=== PATIENT | male | born 1960 | race American Indian/Alaskan Native ===

== ENCOUNTER 2022-02-25 10:32 | Emergency (ER) | payer MEDICARE ==
[2022-02-25 11:37] VITALS: BP 121/88
--- NOTE | 2022-02-25 12:38 | XRay Report ---
XR chest routine 2V INDICATION / CLINICAL INFORMATION: Weakness. COMPARISON: 06/04/2021 FINDINGS: SUPPORT DEVICES: None. HEART /PULMONARY VASCULATURE: Stable cardiomegaly. No significant pulmonary vasculature congestion. LUNGS / PLEURA: Bibasilar volume loss. No focal airspace consolidation. No sizable pleural effusion. No pneumothorax. ADDITIONAL FINDINGS: No significant additional findings. IMPRESSION: 1. No acute findings. Signer Name: Waldemar Pedersen MD Signed: 02/25/2022 12:34 PM Workstation Name: [id number]
[2022-02-25 12:52] LABS: Basophils # (Auto) 0.1 K/mm3 (0.0-0.1); Basophils % (Auto) 0.9 % (0.0-1.8); Eosinophils % (Auto) 0.2 % (0.0-4.3); Hematocrit 41.3 % (35.5-45.6); Hemoglobin 13.5 gm/dl (11.8-15.2); Lymphocytes % (Auto) 17.8 % (13.4-35.0); Mean Corpuscular HGB Conc 33 % (32-34); Mean Corpuscular Volume 96 fl (84-94); Monocytes # (Auto) 0.4 K/mm3 (0.0-0.8); Monocytes % (Auto) 8.3 % (0.0-7.3); Platelet Count 227 K/mm3 (140-440); Red Cell Distribution Width 13.7 % (13.2-15.2)
[2022-02-25 13:20] LABS: Albumin 4.6 g/dL (3.9-5); Calcium 9.2 mg/dL (8.4-10.2)
[2022-02-25 14:08] LABS: INR 0.9 (0.87-1.13)
--- NOTE | 2022-02-26 13:34 | Electrocardiograph Report ---
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
== END 2022-02-25 21:54 | disposition left against medical advice (07) ==
LOC: ED 10:32
DX: R06.02 Shortness of breath (principal); Z53.21 Procedure and treatment not carried out due to patient leaving prior to being seen by health care provider
CPT/HCPCS: 36415; 71046; 80053; 84484; 85025; 85610; 93005

== ENCOUNTER 2022-02-26 09:24 | Inpatient (IN) | payer MEDICARE ==
--- NOTE | 2022-02-26 11:08 | Cat Scan Report ---
CT HEAD WITHOUT CONTRAST INDICATION / CLINICAL INFORMATION: L sided weakness. TECHNIQUE: All CT scans at this location are performed using CT dose reduction for ALARA by means of automated e xposure control. COMPARISON: None available. FINDINGS: HEMORRHAGE: No evidence of intracranial hemorrhage or extra-axial fluid collection. EXTRA-AXIAL SPACES: Cortical sulci and sylvian fissures are within normal limits for size and configu ration. Basilar cisterns have an unremarkable appearance. VENTRICULAR SYSTEM: Lateral ventricles are within normal limits for size given the patient's age of [age] years. CEREBRAL PARENCHYMA: Extensive periventricular, subcortical and deep white matter lucency is observed . This is probably secondary to advanced microvascular ischemic change. Are there risk factors such a s diabetes, hypertension, cigarette smoking or renal disease A small focus of decreased attenuation s uggest the presence of remote small deep infarction in the posterior aspect of the left thalamus. The re is no indication of recent infarction. There is no indication of remote cortical infarction. MIDLINE SHIFT OR HERNIATION: There is no mass effect. CEREBELLUM / BRAINSTEM: A small (3 mm diameter) area of decreased attenuation is identified within th e clau lateralizing to the left midline. This likely represents a remote small pontine infarction. Br ainstem has an otherwise unremarkable appearance. MIDLINE STRUCTURES:Pituitary gland has an unremarkable appearance. No abnormalities are seen in the p ineal region. INTRACRANIAL VESSELS:Calcified atherosclerotic plaque is present along the course of the cavernous se gments of both internal carotid arteries. Similar findings are seen at the distal vertebral arteries. CRANIOCERVICAL JUNCTION:No significant abnormality. ORBITS: visualized portions of the orbits have an unremarkable appearance. SOFT TISSUES of HEAD: No significant abnormality. CALVARIUM: Evaluation of bone windows reveals no abnormalities. PARANASAL SINUSES / MASTOID AIR CELLS: Paranasal sinuses are free from inflammatory mucosal disease. Mastoid air cells are normally pneumatized. ADDITIONAL FINDINGS: None. IMPRESSION: 1. Moderate microvascular ischemic changes in the white matter both cerebral hemispheres. 2. 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 3. No acute intracranial abnormality is identified. Signer Name: Prasanna Monterroso MD Signed: 02/26/2022 11:04 AM Workstation Name: [id number]
[2022-02-27 00:33] LABS: Basophils % (Auto) 0.3 % (0.0-1.8); Eosinophils % (Auto) 0.2 % (0.0-4.3); Hematocrit 38.1 % (35.5-45.6); Hemoglobin 12.7 gm/dl (11.8-15.2); Lymphocytes # (Auto) 1.4 K/mm3 (1.2-5.4); Lymphocytes % (Auto) 18.3 % (13.4-35.0); Mean Corpuscular HGB Conc 34 % (32-34); Mean Corpuscular Volume 96 fl (84-94); Monocytes # (Auto) 0.8 K/mm3 (0.0-0.8); Monocytes % (Auto) 10.4 % (0.0-7.3); Platelet Count 217 K/mm3 (140-440); Red Blood Count 3.96 M/mm3 (3.65-5.03); Red Cell Distribution Width 13.5 % (13.2-15.2)
--- NOTE | 2022-02-27 00:46 | Emergency Department Report ---
ED Neuro Deficit HPI - General Chief Complaint: Neuro Symptoms/Deficit Stated Complaint: LT SIDE WEAKNESS Time Seen by Provider: 02/26/22 22:56 Source: patient Mode of arrival: Wheelchair Limitations: Physical Limitation - History of Present Illness Initial Comments: Patient is a 61-year-old male presenting to ED with complaint of weakness and decreased sensation in his left arm and hand beginning Tuesday. States he is having trouble grasping things. No past history of CVA. - Related Data Home Medications: Previous Rx's Medication Instructions Recorded Last Taken Type Aspirin [Aspirin BABY CHEW TAB] 81 mg PO QDAY 30 Days #30 tab.chew 06/09/21 Unknown Rx Furosemide [Lasix TAB] 20 mg PO QDAY 30 Days #30 tablet 06/09/21 Unknown Rx Losartan [Cozaar] 100 mg PO QDAY 30 Days #30 tablet 06/09/21 Unknown Rx Metoprolol [Lopressor TAB] 50 mg PO BID 30 Days #60 tablet 06/09/21 Unknown Rx NIFEdipine XL [Procardia Xl] 60 mg PO Q12HR 30 Days #60 tablet 06/09/21 Unknown Rx Tamsulosin [Flomax] 0.4 mg PO QDAY 30 Days #30 capsule 06/09/21 Unknown Rx hydrALAZINE [Apresoline TAB] 100 mg PO Q8H 30 Days #90 tab 06/09/21 Unknown Rx Allergies/Adverse Reactions: Allergies Allergy/AdvReac Type Severity Reaction Status Date / Time No Known Allergies Allergy Verified 02/25/22 11:37 ED Review of Systems ROS: Stated complaint: LT SIDE WEAKNESS Other details as noted in HPI Constitutional: no symptoms reported Respiratory: denies: cough, shortness of breath, wheezing Cardiovascular: denies: chest pain, palpitations Gastrointestinal: denies: abdominal pain, nausea, diarrhea Genitourinary: denies: urgency, dysuria Musculoskeletal: denies: back pain, joint swelling, arthralgia Skin: denies: rash, lesions Neurological: weakness. denies: headache Psychiatric: denies: anxiety, depression ED Past Medical Hx - Past Medical History Hx Hypertension: Yes Hx Congestive Heart Failure: Yes Hx Diabetes: No Hx Asthma: No Hx COPD: No Additional medical history: urinary frequency - Social History Smoking Status: Current Every Day Smoker - Medications Home Medications: Home Medications Medication Instructions Recorded Confirmed Last Taken Type Aspirin [Aspirin BABY CHEW TAB] 81 mg PO QDAY 30 Days #30 tab.chew 06/09/21 Unknown Rx Furosemide [Lasix TAB] 20 mg PO QDAY 30 Days #30 tablet 06/09/21 Unknown Rx Losartan [Cozaar] 100 mg PO QDAY 30 Days #30 tablet 06/09/21 Unknown Rx Metoprolol [Lopressor TAB] 50 mg PO BID 30 Days #60 tablet 06/09/21 Unknown Rx NIFEdipine XL [Procardia Xl] 60 mg PO Q12HR 30 Days #60 tablet 06/09/21 Unknown Rx Tamsulosin [Flomax] 0.4 mg PO QDAY 30 Days #30 capsule 06/09/21 Unknown Rx hydrALAZINE [Apresoline TAB] 100 mg PO Q8H 30 Days #90 tab 06/09/21 Unknown Rx ED Neuro Physical Exam - General Limitations: Physical Limitation General appearance: alert, in no apparent distress Suspected Stroke: Yes - Head Head exam: Present: atraumatic, normocephalic - Respiratory Respiratory exam: Present: normal lung sounds bilaterally. Absent: respiratory distress - Cardiovascular Cardiovascular Exam: Present: regular rate, normal rhythm, normal heart sounds - GI/Abdominal GI/Abdominal exam: Present: soft. Absent: distended, tenderness - Neurological Exam Neurological exam: Present: alert, oriented X3 - NIHSS Assessment Interval: 24 hours post onset of symptoms +-20 minutes 1a. Level of Consciousness: alert/keenly responsive 1b. LOC Questions: answers both correctly 1c. LOC Commands: performs tasks correctly 2. Best Gaze: normal 3. Visual: no visual loss 4. Facial Palsy: normal symmetrical movement 5b. Motor Arm Right: no drift 5a. Motor Arm Left: drift 6a. Motor Leg Left: no drift 6b. Motor Leg Right: no drift 7. Limb Ataxia: present 1 limb 8. Sensory: normal 9. Best Language: no aphasia 10. Dysarthria: normal 11. Extinction/Inattention: no abnormality Total Score: 2 Stroke Severity: Minor Stroke - Psychiatric Psychiatric exam: Present: normal affect, normal mood - Skin Skin exam: Present: warm, dry, intact, normal color ED Course Vital Signs 02/26/22 02/26/22 02/26/22 09:47 20:14 23:30 Temperature 98.4 F 98.5 F Pulse Rate 85 89 Respiratory 18 18 23 Rate Blood Pressure 133/95 Blood Pressure 154/84 [Left] O2 Sat by Pulse 97 94 95 Oximetry 02/26/22 02/26/22 23:31 23:45 Temperature Pulse Rate 58 L 67 Respiratory 23 16 Rate Blood Pressure 166/96 170/98 Blood Pressure [Left] O2 Sat by Pulse 95 98 Oximetry - Lab Data Result diagrams: 02/27/22 00:14 02/27/22 00:14 Lab Results 02/27/22 02/27/22 Range/Units 00:14 00:14 WBC 7.5 (4.5-11.0) K/mm3 RBC 3.96 (3.65-5.03) M/mm3 Hgb 12.7 (11.8-15.2) gm/dl Hct 38.1 (35.5-45.6) % MCV 96 H (84-94) fl MCH 32 (28-32) pg MCHC 34 (32-34) % RDW 13.5 (13.2-15.2) % Plt Count 217 (140-440) K/mm3 Lymph % (Auto) 18.3 (13.4-35.0) % [place] % (Auto) 10.4 H (0.0-7.3) % Eos % (Auto) 0.2 (0.0-4.3) % Baso % (Auto) 0.3 (0.0-1.8) % Lymph # (Auto) 1.4 (1.2-5.4) K/mm3 [place] # (Auto) 0.8 (0.0-0.8) K/mm3 Eos # (Auto) 0.0 (0.0-0.4) K/mm3 Baso # (Auto) 0.0 (0.0-0.1) K/mm3 Seg Neutrophils % 70.8 H (40.0-70.0) % Seg Neutrophils # 5.3 (1.8-7.7) K/mm3 Sodium 142 (137-145) mmol/L Potassium 3.9 (3.6-5.0) mmol/L Chloride 107.9 H (98-107) mmol/L Carbon Dioxide 23 (22-30) mmol/L Anion Gap 15 mmol/L BUN 22 H (9-20) mg/dL Creatinine 1.5 H (0.8-1.3) mg/dL Estimated GFR 58 ml/min BUN/Creatinine Ratio 15 % Glucose 91 (75-100) mg/dL Calcium 8.9 (8.4-10.2) mg/dL Total Bilirubin 0.40 (0.1-1.2) mg/dL AST 19 (5-40) units/L ALT 9 (7-56) units/L Alkaline Phosphatase 59 (35-129) units/L Total Protein 7.0 (6.3-8.2) g/dL Albumin 4.3 (3.9-5) g/dL Albumin/Globulin Ratio 1.6 % - Medical Decision Making CT head shows no acute findings however shows evidence of remote infarcts. CBC and CMP grossly unremarkable. Patient is not a candidate for tPA due to duration of symptoms. Aspirin ordered. Will admit to hospitalist for further stroke work-up. Critical care attestation.: If time is entered above; I have spent that time in minutes in the direct care of this critically ill patient, excluding procedure time. ED Disposition Clinical Impression: Symptoms of cerebrovascular accident (CVA) Disposition: 09 ADMITTED INPATIENT Is pt being admited?: Yes Does the pt Need Aspirin: Yes Condition: Stable
[2022-02-27 00:53] LABS: Albumin 4.3 g/dL (3.9-5); Calcium 8.9 mg/dL (8.4-10.2)
[2022-02-27] MEDS ORDERED: ASPIRIN 325 MG TAB PO ONE (01:34)
[2022-02-27] MEDS ORDERED: ACETAMINOPHEN 325 MG TAB PO PRN (02:32)
[2022-02-27] MEDS ORDERED: MAGNESIUM HYDROXIDE (MOM) ORAL LIQD UDC PO PRN (02:32)
[2022-02-27] MEDS ORDERED: MORPHINE 4 MG/1 ML INJ IV PRN ×2 (02:32)
[2022-02-27] MEDS ORDERED: PROMETHAZINE 25 MG RECT SUPP PR PRN (02:32)
[2022-02-27] MEDS ORDERED: MORPHINE 2 MG/1 ML INJ IV PRN ×2 (02:32)
[2022-02-27] MEDS ORDERED: METOCLOPRAMIDE 10 MG TAB PO PRN (02:32)
[2022-02-27] MEDS ORDERED: ONDANSETRON 4 MG/2 ML INJ IV PRN (02:32)
--- NOTE | 2022-02-27 02:49 | History and Physical Report ---
History of Present Illness Date of examination: 02/27/22 Date of admission: 02/27/2022 Chief complaint: Left arm numbness/weakness History of present illness: 61-year-old male with known history of hypertension, CHF, history of tobacco abuse presenting to the emergency room today with complaints of left upper extremity numbness and sensation all of which started about 24 hours ago. He has also been having difficulty gripping objects. He denies any headache or dizziness and denies any diaphoresis. No chest pain or shortness of breath, no nausea vomiting and no abdominal pain. Patient denies having similar symptoms in the past. Work-up in the emergency room today, labs significant for BUN of [address] scan of the head shows moderate microvascular ischemic changes in the white matter both cerebral hemispheres. 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 No acute intracranial abnormality. Patient being admitted for possible CVA work-up. Past History Past Medical History: heart failure, hypertension Past Surgical History: No surgical history Social history: smoking (Current daily smoker) Family history: no significant family history Medications and Allergies Allergies Allergy/AdvReac Type Severity Reaction Status Date / Time No Known Allergies Allergy Verified 02/25/22 11:37 Home Medications Medication Instructions Recorded Confirmed Last Taken Type Aspirin [Aspirin BABY CHEW TAB] 81 mg PO QDAY 30 Days #30 tab.chew 06/09/21 Unknown Rx Furosemide [Lasix TAB] 20 mg PO QDAY 30 Days #30 tablet 06/09/21 Unknown Rx Losartan [Cozaar] 100 mg PO QDAY 30 Days #30 tablet 06/09/21 Unknown Rx Metoprolol [Lopressor TAB] 50 mg PO BID 30 Days #60 tablet 06/09/21 Unknown Rx NIFEdipine XL [Procardia Xl] 60 mg PO Q12HR 30 Days #60 tablet 06/09/21 Unknown Rx Tamsulosin [Flomax] 0.4 mg PO QDAY 30 Days #30 capsule 06/09/21 Unknown Rx hydrALAZINE [Apresoline TAB] 100 mg PO Q8H 30 Days #90 tab 06/09/21 Unknown Rx Active Meds: Active Medications Acetaminophen (Acetaminophen 325 Mg Tab) 650 mg PO Q4H PRN PRN Reason: Pain MILD(1-3)/Fever >100.5/TOUSSAINT Acetaminophen (Acetaminophen 325 Mg Tab) 650 mg PO Q4H PRN PRN Reason: Pain, Mild (1-3) Aspirin (Aspirin 325 Mg Tab) 325 mg PO QDAY CATIE Atorvastatin Calcium (Atorvastatin 40 Mg Tab) 40 mg PO QHS CATIE Bisacodyl (Bisacodyl 10 Mg Rect Supp) 10 mg [place] QDAY PRN PRN Reason: Constipation Heparin Sodium (Porcine) (Heparin 5,000 Unit/1 Ml Vial) 5,000 unit SUB-Q Q8HR CATIE Magnesium Hydroxide (Magnesium Hydroxide (Mom) Oral Liqd Udc) 30 ml PO Q4H PRN PRN Reason: Constipation Magnesium Hydroxide (Magnesium Hydroxide (Mom) Oral Liqd Udc) 30 ml PO Q4H PRN PRN Reason: Constipation Metoclopramide HCl (Metoclopramide 10 Mg Tab) 10 mg PO Q6H PRN PRN Reason: Nausea And Vomiting Morphine Sulfate (Morphine 2 Mg/1 Ml Inj) 2 mg IV Q4H PRN PRN Reason: Pain, Moderate (4-6) Morphine Sulfate (Morphine 4 Mg/1 Ml Inj) 4 mg IV Q4H PRN PRN Reason: Pain , Severe (7-10) Morphine Sulfate (Morphine 2 Mg/1 Ml Inj) 2 mg IV Q4H PRN PRN Reason: Pain, Moderate (4-6) Morphine Sulfate (Morphine 4 Mg/1 Ml Inj) 4 mg IV Q4H PRN PRN Reason: Pain , Severe (7-10) Ondansetron HCl (Ondansetron 4 Mg/2 Ml Inj) 4 mg IV Q8H PRN PRN Reason: Nausea And Vomiting Promethazine HCl (Promethazine 25 Mg Rect Supp) 25 mg NH Q6H PRN PRN Reason: Nausea And Vomiting Sodium Chloride (Sodium Chloride 0.9% 10 Ml Flush Syringe) 10 ml IV BID CATIE Sodium Chloride (Sodium Chloride 0.9% 10 Ml Flush Syringe) 10 ml IV PRN PRN PRN Reason: LINE FLUSH Sodium Chloride (Sodium Chloride 0.9% 10 Ml Flush Syringe) 10 ml INJ PRN PRN PRN Reason: LINE FLUSH Review of Systems Constitutional: no fever, no chills Ears, nose, mouth and throat: no nasal congestion, no sore throat Cardiovascular: no chest pain, no palpitations Respiratory: no cough, no shortness of breath Gastrointestinal: no abdominal pain, no nausea, no vomiting, no diarrhea Genitourinary Male: no dysuria, no hematuria, no flank pain, no nocturia Musculoskeletal: no neck pain, no low back pain Integumentary: no rash, no pruritis Neurological: weakness (Left arm), numbness (Left arm), no headaches, no confusion Exam - Constitutional Vitals: Temp Pulse Resp BP Pulse Ox 98.5 F 81 17 165/113 96 02/26/22 20:14 02/27/22 02:01 02/27/22 01:45 02/27/22 02:01 02/27/22 02:01 General appearance: Present: no acute distress, well-nourished - EENT Eyes: Present: PERRL, EOM intact. Absent: scleral icterus ENT: hearing intact, clear oral mucosa, dentition normal - Neck Neck: Present: supple, normal ROM - Respiratory Respiratory effort: normal Respiratory: bilateral: CTA - Cardiovascular Rhythm: regular Heart Sounds: Present: S1 & S2. Absent: gallop, systolic murmur, diastolic murmur, rub, click - Extremities Extremities: no ischemia, pulses intact, pulses symmetrical, No edema, normal temperature, Full ROM Peripheral Pulses: within normal limits - Abdominal General gastrointestinal: Present: soft, non-tender, non-distended, normal bowel sounds. Absent: mass - Integumentary Integumentary: Present: clear, warm, dry, normal turgor. Absent: rash - Musculoskeletal Musculoskeletal: left sided weakness (Left upper extremity) - Psychiatric Psychiatric: appropriate mood/affect, intact judgment & insight, memory intact, cooperative - Neurologic Neurologic: CNII-XII intact, no focal deficits, moves all extremities Results - Labs CBC & Chem 7: 02/27/22 00:14 02/27/22 00:14 Labs: Abnormal lab results 02/27/22 02/27/22 Range/Units 00:14 00:14 MCV 96 H (84-94) fl [place] % (Auto) 10.4 H (0.0-7.3) % Seg Neutrophils % 70.8 H (40.0-70.0) % Chloride 107.9 H (98-107) mmol/L BUN 22 H (9-20) mg/dL Creatinine 1.5 H (0.8-1.3) mg/dL Assessment and Plan Assessment: 1. Left upper extremity weakness 2. Hypertension 3. Tobacco abuse Plan: 1. Patient admitted and placed on telemetry. 2. Replace consult to neurology and physical therapy for evaluation. 3. Patient will be started on daily aspirin and statin. 4. We will request MRI of the brain, carotid Doppler and echocardiogram. DVT prophylaxis: Subcutaneous heparin CODE STATUS: Full code
[2022-02-27] MEDS ORDERED: hydrALAZINE 20 MG/1 ML INJ IV PRN ×3 (03:00→04:00)
[2022-02-27] MEDS: HEPARIN 5,000 UNIT/1 ML VIAL SUB-Q SCH ×3 (05:44→22:32)
[2022-02-27] MEDS: ASPIRIN 325 MG TAB PO SCH (10:06)
--- NOTE | 2022-02-27 10:38 | Event Note ---
Date: 02/27/22 Patient seen and examined at bedside. He reports difficulty with using his left hand. He has no other focal deficits. He does have left leg pain with plans for hip replacement in the next few weeks. Patient has history of heart failure and has home medications were reconciled. We are currently waiting MRI/echo/Doppler. CT of the head reviewed and results discussed with patient. We will continue with current care plan.
[2022-02-27] MEDS: hydrALAZINE 100 MG TAB PO SCH ×2 (12:01→18:18)
[2022-02-27] MEDS: METOPROLOL TARTRATE 25 MG TAB PO SCH (22:33)
[2022-02-27] MEDS: NIFEdipine XL 30 MG TAB PO SCH (22:33)
[2022-02-28] MEDS: hydrALAZINE 100 MG TAB PO SCH ×3 (04:15→21:33)
[2022-02-28] MEDS: HEPARIN 5,000 UNIT/1 ML VIAL SUB-Q SCH ×3 (05:56→21:34)
[2022-02-28 06:36] LABS: Basophils % (Auto) 0.4 % (0.0-1.8); Eosinophils # (Auto) 0.1 K/mm3 (0.0-0.4); Eosinophils % (Auto) 1.2 % (0.0-4.3); Hematocrit 35.8 % (35.5-45.6); Hemoglobin 11.9 gm/dl (11.8-15.2); Lymphocytes # (Auto) 1.5 K/mm3 (1.2-5.4); Lymphocytes % (Auto) 24.9 % (13.4-35.0); Mean Corpuscular HGB Conc 33 % (32-34); Mean Corpuscular Volume 95 fl (84-94); Monocytes # (Auto) 0.5 K/mm3 (0.0-0.8); Monocytes % (Auto) 9.2 % (0.0-7.3); Platelet Count 193 K/mm3 (140-440); Red Blood Count 3.75 M/mm3 (3.65-5.03); Red Cell Distribution Width 13.5 % (13.2-15.2)
[2022-02-28 06:50] LABS: BUN/Creatinine Ratio 15; Blood Urea Nitrogen 19 mg/dL (9-20); Calcium 8.3 mg/dL (8.4-10.2); Hemolysis Index 8
[2022-02-28] MEDS: NIFEdipine XL 30 MG TAB PO SCH ×2 (10:18→21:32)
[2022-02-28] MEDS: TAMSULOSIN 0.4 MG CAP PO SCH (10:18)
[2022-02-28] MEDS: METOPROLOL TARTRATE 25 MG TAB PO SCH ×2 (10:18→21:32)
[2022-02-28] MEDS: ASPIRIN 325 MG TAB PO SCH (10:18)
[2022-02-28] MEDS: FUROSEMIDE 20 MG TAB PO SCH (10:18)
--- NOTE | 2022-02-28 11:32 | Progress Note ---
Assessment and Plan Assessment and plan: #CVA vs TIA #Left upper extremity weakness -CT of the head shows remote small pontine and left thalamic stroke -MRI ordered and pending -Echocardiogram showed no PFO -PT recommends acute rehab -Neurology consult pending -continue ASA + statin #Chronic heart failure with reduced ejection fraction, not in acute exacerbation -Previous echocardiogram showed EF of 40 to 45%; TTE 02/2022 shows LVEF 55-60% -continue home doses of lasix, metoprolol -losartan was held by PCP, will not restart #Hypertension -continue hydralazine at home dose #Tobacco abuse -Smoking cessation counseling, supportive care, behavior change counseling, +15 minutes. #Chronic hip pain -patient currently being worked up outpatient for possible hip replacement -PRN analgesics ordered #Advanced care planning -Disease education conducted, care plan discussed, diagnoses discussed, prognosis discussed, and patient acknowledges understanding with care plan -Time: +30 min History Interval history: No acute events overnight. Patient reports improved strength in his left hand, but it is not totally 100% back to normal. We discussed findings on imaging and rehab recommendation from physical therapy. Patient is agreeable. He has chronic pain in his left hip and was aware of as needed medications. Hospitalist Physical - Physical exam Narrative exam: GENERAL: Well-developed well-nourished. Sitting on the side of the bed in no acute distress. HEENT: Normocephalic. Atraumatic. NECK: Supple. CHEST/LUNGS: CTAB on room air HEART/CARDIOVASCULAR: RRR. No murmur, rubs or gallops appreciated. ABDOMEN: +BS. NT/ND. SKIN: No rashes noted. NEURO: No focal motor deficit. Follows all commands. MUSCULOSKELETAL: No joint effusion EXTREMITIES: No cyanosis, clubbing or edema. PSYCH: Cooperative. - Constitutional Vitals: Temp Pulse Resp BP Pulse Ox 98.0 F 83 18 139/99 98 02/28/22 07:46 02/28/22 07:46 02/28/22 07:46 02/28/22 07:46 02/28/22 07:46 General appearance: Present: no acute distress, well-nourished Results - Labs CBC & Chem 7: 02/28/22 05:46 02/28/22 05:46 Labs: Laboratory Last Values WBC 5.9 K/mm3 (4.5-11.0) 02/28/22 05:46 RBC 3.75 M/mm3 (3.65-5.03) 02/28/22 05:46 Hgb 11.9 gm/dl (11.8-15.2) 02/28/22 05:46 Hct 35.8 % (35.5-45.6) 02/28/22 05:46 MCV 95 fl (84-94) H 02/28/22 05:46 MCH 32 pg (28-32) 02/28/22 05:46 MCHC 33 % (32-34) 02/28/22 05:46 RDW 13.5 % (13.2-15.2) 02/28/22 05:46 Plt Count 193 K/mm3 (140-440) 02/28/22 05:46 Lymph % (Auto) 24.9 % (13.4-35.0) 02/28/22 05:46 [place] % (Auto) 9.2 % (0.0-7.3) H 02/28/22 05:46 Eos % (Auto) 1.2 % (0.0-4.3) 02/28/22 05:46 Baso % (Auto) 0.4 % (0.0-1.8) 02/28/22 05:46 Lymph # (Auto) 1.5 K/mm3 (1.2-5.4) 02/28/22 05:46 [place] # (Auto) 0.5 K/mm3 (0.0-0.8) 02/28/22 05:46 Eos # (Auto) 0.1 K/mm3 (0.0-0.4) 02/28/22 05:46 Baso # (Auto) 0.0 K/mm3 (0.0-0.1) 02/28/22 05:46 Seg Neutrophils % 64.3 % (40.0-70.0) 02/28/22 05:46 Seg Neutrophils # 3.8 K/mm3 (1.8-7.7) 02/28/22 05:46 Sodium 141 mmol/L (137-145) 02/28/22 05:46 Potassium 3.9 mmol/L (3.6-5.0) 02/28/22 05:46 Chloride 110.4 mmol/L (98-107) H 02/28/22 05:46 Carbon Dioxide 20 mmol/L (22-30) L 02/28/22 05:46 Anion Gap 15 mmol/L 02/28/22 05:46 BUN 19 mg/dL (9-20) 02/28/22 05:46 Creatinine 1.3 mg/dL (0.8-1.3) 02/28/22 05:46 Estimated GFR > 60 ml/min 02/28/22 05:46 BUN/Creatinine Ratio 15 % 02/28/22 05:46 Glucose 105 mg/dL (75-100) H 02/28/22 05:46 Calcium 8.3 mg/dL (8.4-10.2) L 02/28/22 05:46 Total Bilirubin 0.40 mg/dL (0.1-1.2) 02/27/22 00:14 AST 19 units/L (5-40) 02/27/22 00:14 ALT 9 units/L (7-56) 02/27/22 00:14 Alkaline Phosphatase 59 units/L (35-129) 02/27/22 00:14 Total Protein 7.0 g/dL (6.3-8.2) 02/27/22 00:14 Albumin 4.3 g/dL (3.9-5) 02/27/22 00:14 Albumin/Globulin Ratio 1.6 % 02/27/22 00:14 Active Medications - Current Medications Current Medications: Generic Name Dose Route Start Last Admin Trade Name Freq PRN Reason Stop Dose Admin Acetaminophen 650 mg 02/27/22 02:32 Acetaminophen 325 Mg Tab PO Q4H PRN Pain, Mild (1-3) Aspirin 325 mg 02/27/22 10:00 02/28/22 10:18 Aspirin 325 Mg Tab PO 325 mg QDAY CATIE Administration Atorvastatin Calcium 40 mg 02/27/22 22:00 02/27/22 22:33 Atorvastatin 40 Mg Tab PO 40 mg QHS CATIE Administration Bisacodyl 10 mg 02/27/22 02:32 Bisacodyl 10 Mg Rect Supp MD QDAY PRN Constipation Furosemide 20 mg 02/28/22 10:00 02/28/22 10:18 Furosemide 20 Mg Tab PO 20 mg QDAY CATIE Administration Heparin Sodium (Porcine) 5,000 unit 02/27/22 06:00 02/28/22 05:56 Heparin 5,000 Unit/1 Ml Vial SUB-Q 5,000 unit Q8HR CATIE Administration Hydralazine HCl 10 mg 02/27/22 03:12 02/27/22 03:13 Hydralazine 20 Mg/1 Ml Inj IV 10 mg Q4HR PRN Administration Hypertension Hydralazine HCl 100 mg 02/27/22 11:00 02/28/22 04:15 Hydralazine 100 Mg Tab PO 100 mg Q8H CATIE Administration Magnesium Hydroxide 30 ml 02/27/22 02:32 Magnesium Hydroxide (Mom) Oral Liqd Udc PO Q4H PRN Constipation Metoclopramide HCl 10 mg 02/27/22 02:32 Metoclopramide 10 Mg Tab PO Q6H PRN Nausea And Vomiting Metoprolol Tartrate 50 mg 02/27/22 22:00 02/28/22 10:18 Metoprolol Tartrate 25 Mg Tab PO 50 mg BID CTAIE Administration Morphine Sulfate 2 mg 02/27/22 02:32 Morphine 2 Mg/1 Ml Inj IV Q4H PRN Pain, Moderate (4-6) Morphine Sulfate 4 mg 02/27/22 02:32 02/27/22 03:13 Morphine 4 Mg/1 Ml Inj IV 4 mg Q4H PRN Administration Pain , Severe (7-10) Nifedipine 60 mg 02/27/22 22:00 02/28/22 10:18 Nifedipine Xl 30 Mg Tab PO 60 mg Q12HR CATIE Administration Ondansetron HCl 4 mg 02/27/22 02:32 Ondansetron 4 Mg/2 Ml Inj IV Q8H PRN Nausea And Vomiting Promethazine HCl 25 mg 02/27/22 02:32 Promethazine 25 Mg Rect Supp MD Q6H PRN Nausea And Vomiting Sodium Chloride 10 ml 02/27/22 10:00 02/27/22 22:34 Sodium Chloride 0.9% 10 Ml Flush Syringe IV 10 ml BID CATIE Administration Sodium Chloride 10 ml 02/27/22 02:32 Sodium Chloride 0.9% 10 Ml Flush Syringe IV PRN PRN LINE FLUSH Tamsulosin HCl 0.4 mg 02/28/22 10:00 02/28/22 10:18 Tamsulosin 0.4 Mg Cap PO 0.4 mg QDAY CATIE Administration Nutrition/Malnutrition Assess - Dietary Evaluation Nutrition/Malnutrition Findings: Nutrition Notes Start: 02/27/22 08:19 Freq: Status: Active Protocol: Document 02/27/22 08:19 DEANNE (Rec: 02/27/22 08:28 DEANNE [id number]) Nutrition Notes Need for Assessment generated from: MD Order,Education Initial or Follow up Brief Note Current Diagnosis Hypertension Other Pertinent Diagnosis R/O CVA, CHF, L-UE Weakness. Current Diet Cardiac Diet (since B 02/27). 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 Weight Status Overweight Subjective/Other Information RD consult for nutrition education assessment. No reports available on Pt's PO intake of meals at the time , will assess at F/U. Pt is on Room Air, O2 saturation @ 95%, according to Physical Assessment History notes. Bedside swallow assessment passed on 02/27, according to Swallow Screen notes. Pt still in critical condition , not a candidate for Nutrition Education at the time, will assess feasibility on F/U. Percent of energy/protein needs met: Prescribed Cardiac Diet provides for energy/protein needs (2,230 Kcal/85 g) during LOS. Nutrition Intervention Follow-Up By: 03/05/22 Additional Comments Nutrition education will be provided at F/U, if feasible. Continue monitoring food tolerance, %PO intake of meals , and BM.
[2022-03-01] MEDS: hydrALAZINE 100 MG TAB PO SCH ×3 (05:23→21:34)
[2022-03-01] MEDS: HEPARIN 5,000 UNIT/1 ML VIAL SUB-Q SCH ×3 (05:23→21:27)
--- NOTE | 2022-03-01 07:57 | Progress Note ---
Assessment and Plan Assessment and plan: #CVA vs TIA #Left upper extremity weakness -CT of the head shows remote small pontine and left thalamic stroke -MRI ordered and pending -Echocardiogram showed no PFO -PT recommends acute rehab; patient would prefer HH with PT -Neurology consult pending -continue ASA + statin #Chronic heart failure with reduced ejection fraction, not in acute exacerbation -Previous echocardiogram showed EF of 40 to 45%; TTE 02/2022 shows LVEF 55-60% -continue home doses of lasix, metoprolol -losartan was held by PCP, will not restart #Hypertension -continue hydralazine at home dose #Tobacco abuse -Smoking cessation counseling, supportive care, behavior change counseling, +15 minutes. #Chronic hip pain -patient currently being worked up outpatient for possible hip replacement -PRN analgesics ordered #Advanced care planning -Disease education conducted, care plan discussed, diagnoses discussed, prognosis discussed, and patient acknowledges understanding with care plan -Time: +30 min #Discharge planning -Patient would like to go home with home health and physical therapy services, case management consult placed History Interval history: No acute events overnight. Patient reports continued numbness in his L hand but feels better overall. He has no complaints at this time. Hospitalist Physical - Physical exam Narrative exam: GENERAL: Well-developed well-nourished. Sitting on the side of the bed in no acute distress. HEENT: Normocephalic. Atraumatic. NECK: Supple. CHEST/LUNGS: CTAB on room air HEART/CARDIOVASCULAR: RRR. No murmur, rubs or gallops appreciated. ABDOMEN: +BS. NT/ND. SKIN: No rashes noted. NEURO: No focal motor deficit. Follows all commands. MUSCULOSKELETAL: No joint effusion EXTREMITIES: No cyanosis, clubbing or edema. PSYCH: Cooperative. - Constitutional Vitals: Temp Pulse Resp BP Pulse Ox 98.8 F 72 18 126/86 100 03/01/22 03:14 03/01/22 03:14 03/01/22 03:14 03/01/22 03:14 03/01/22 03:14 General appearance: Present: no acute distress, well-nourished Results - Labs CBC & Chem 7: 02/28/22 05:46 02/28/22 05:46 Labs: Laboratory Last Values WBC 5.9 K/mm3 (4.5-11.0) 02/28/22 05:46 RBC 3.75 M/mm3 (3.65-5.03) 02/28/22 05:46 Hgb 11.9 gm/dl (11.8-15.2) 02/28/22 05:46 Hct 35.8 % (35.5-45.6) 02/28/22 05:46 MCV 95 fl (84-94) H 02/28/22 05:46 MCH 32 pg (28-32) 02/28/22 05:46 MCHC 33 % (32-34) 02/28/22 05:46 RDW 13.5 % (13.2-15.2) 02/28/22 05:46 Plt Count 193 K/mm3 (140-440) 02/28/22 05:46 Lymph % (Auto) 24.9 % (13.4-35.0) 02/28/22 05:46 [place] % (Auto) 9.2 % (0.0-7.3) H 02/28/22 05:46 Eos % (Auto) 1.2 % (0.0-4.3) 02/28/22 05:46 Baso % (Auto) 0.4 % (0.0-1.8) 02/28/22 05:46 Lymph # (Auto) 1.5 K/mm3 (1.2-5.4) 02/28/22 05:46 [place] # (Auto) 0.5 K/mm3 (0.0-0.8) 02/28/22 05:46 Eos # (Auto) 0.1 K/mm3 (0.0-0.4) 02/28/22 05:46 Baso # (Auto) 0.0 K/mm3 (0.0-0.1) 02/28/22 05:46 Seg Neutrophils % 64.3 % (40.0-70.0) 02/28/22 05:46 Seg Neutrophils # 3.8 K/mm3 (1.8-7.7) 02/28/22 05:46 Sodium 141 mmol/L (137-145) 02/28/22 05:46 Potassium 3.9 mmol/L (3.6-5.0) 02/28/22 05:46 Chloride 110.4 mmol/L (98-107) H 02/28/22 05:46 Carbon Dioxide 20 mmol/L (22-30) L 02/28/22 05:46 Anion Gap 15 mmol/L 02/28/22 05:46 BUN 19 mg/dL (9-20) 02/28/22 05:46 Creatinine 1.3 mg/dL (0.8-1.3) 02/28/22 05:46 Estimated GFR > 60 ml/min 02/28/22 05:46 BUN/Creatinine Ratio 15 % 02/28/22 05:46 Glucose 105 mg/dL (75-100) H 02/28/22 05:46 Calcium 8.3 mg/dL (8.4-10.2) L 02/28/22 05:46 Total Bilirubin 0.40 mg/dL (0.1-1.2) 02/27/22 00:14 AST 19 units/L (5-40) 02/27/22 00:14 ALT 9 units/L (7-56) 02/27/22 00:14 Alkaline Phosphatase 59 units/L (35-129) 02/27/22 00:14 Total Protein 7.0 g/dL (6.3-8.2) 02/27/22 00:14 Albumin 4.3 g/dL (3.9-5) 02/27/22 00:14 Albumin/Globulin Ratio 1.6 % 02/27/22 00:14 [place]/IV: Voiding Method Toilet Active Medications - Current Medications Current Medications: Generic Name Dose Route Start Last Admin Trade Name Freq PRN Reason Stop Dose Admin Acetaminophen 650 mg 02/27/22 02:32 Acetaminophen 325 Mg Tab PO Q4H PRN Pain, Mild (1-3) Aspirin 325 mg 02/27/22 10:00 02/28/22 10:18 Aspirin 325 Mg Tab PO 325 mg QDAY CATIE Administration Atorvastatin Calcium 40 mg 02/27/22 22:00 02/28/22 21:33 Atorvastatin 40 Mg Tab PO 40 mg QHS CATIE Administration Bisacodyl 10 mg 02/27/22 02:32 Bisacodyl 10 Mg Rect Supp [place] QDAY PRN Constipation Furosemide 20 mg 02/28/22 10:00 02/28/22 10:18 Furosemide 20 Mg Tab PO 20 mg QDAY CATIE Administration Heparin Sodium (Porcine) 5,000 unit 02/27/22 06:00 03/01/22 05:23 Heparin 5,000 Unit/1 Ml Vial SUB-Q 5,000 unit Q8HR CATIE Administration Hydralazine HCl 10 mg 02/27/22 03:12 02/27/22 03:13 Hydralazine 20 Mg/1 Ml Inj IV 10 mg Q4HR PRN Administration Hypertension Hydralazine HCl 100 mg 02/27/22 11:00 03/01/22 05:23 Hydralazine 100 Mg Tab PO 100 mg Q8H CATIE Administration Magnesium Hydroxide 30 ml 02/27/22 02:32 Magnesium Hydroxide (Mom) Oral Liqd Udc PO Q4H PRN Constipation Metoclopramide HCl 10 mg 02/27/22 02:32 Metoclopramide 10 Mg Tab PO Q6H PRN Nausea And Vomiting Metoprolol Tartrate 50 mg 02/27/22 22:00 02/28/22 21:32 Metoprolol Tartrate 25 Mg Tab PO 50 mg BID CATIE Administration Morphine Sulfate 2 mg 02/27/22 02:32 Morphine 2 Mg/1 Ml Inj IV Q4H PRN Pain, Moderate (4-6) Morphine Sulfate 4 mg 02/27/22 02:32 02/27/22 03:13 Morphine 4 Mg/1 Ml Inj IV 4 mg Q4H PRN Administration Pain , Severe (7-10) Nifedipine 60 mg 02/27/22 22:00 02/28/22 21:32 Nifedipine Xl 30 Mg Tab PO 60 mg Q12HR CATIE Administration Ondansetron HCl 4 mg 02/27/22 02:32 Ondansetron 4 Mg/2 Ml Inj IV Q8H PRN Nausea And Vomiting Promethazine HCl 25 mg 02/27/22 02:32 Promethazine 25 Mg Rect Supp [place] Q6H PRN Nausea And Vomiting Sodium Chloride 10 ml 02/27/22 10:00 02/28/22 21:33 Sodium Chloride 0.9% 10 Ml Flush Syringe IV 10 ml BID CATIE Administration Sodium Chloride 10 ml 02/27/22 02:32 Sodium Chloride 0.9% 10 Ml Flush Syringe IV PRN PRN LINE FLUSH Tamsulosin HCl 0.4 mg 02/28/22 10:00 02/28/22 10:18 Tamsulosin 0.4 Mg Cap PO 0.4 mg QDAY CATIE Administration Nutrition/Malnutrition Assess - Dietary Evaluation Nutrition/Malnutrition Findings: Nutrition Notes Start: 02/27/22 08:19 Freq: Status: Active Protocol: Document 02/27/22 08:19 DEANNE (Rec: 02/27/22 08:28 DEANNE [id number]) Nutrition Notes Need for Assessment generated from: MD Order,Education Initial or Follow up Brief Note Current Diagnosis Hypertension Other Pertinent Diagnosis R/O CVA, CHF, L-UE Weakness. Current Diet Cardiac Diet (since B 02/27). Height 6 ft 1 in Weight 88.451 kg [place] Body Weight (kg) 83.63 BMI 25.7 Intake Prior to Admission Good Weight change and time frame Pt denies having loss body weight [employer]. Weight Status Overweight Subjective/Other Information RD consult for nutrition education assessment. No reports available on Pt's PO intake of meals at the time , will assess at F/U. Pt is on Room Air, O2 saturation @ 95%, according to Physical Assessment History notes. Bedside swallow assessment passed on 02/27, according to Swallow Screen notes. Pt still in critical condition , not a candidate for Nutrition Education at the time, will assess feasibility on F/U. Percent of energy/protein needs met: Prescribed Cardiac Diet provides for energy/protein needs (2,230 Kcal/85 g) during LOS. Nutrition Intervention Follow-Up By: 03/05/22 Additional Comments Nutrition education will be provided at F/U, if feasible. Continue monitoring food tolerance, %PO intake of meals , and BM.
[2022-03-01] MEDS: FUROSEMIDE 20 MG TAB PO SCH (11:20)
[2022-03-01] MEDS: NIFEdipine XL 30 MG TAB PO SCH ×2 (11:20→21:27)
[2022-03-01] MEDS: TAMSULOSIN 0.4 MG CAP PO SCH (11:20)
[2022-03-01] MEDS: ASPIRIN 325 MG TAB PO SCH (11:20)
[2022-03-01] MEDS: METOPROLOL TARTRATE 25 MG TAB PO SCH ×2 (11:21→21:27)
[2022-03-01] MEDS: MAGNESIUM HYDROXIDE (MOM) ORAL LIQD UDC PO PRN (19:47)
[2022-03-01] MEDS: ACETAMINOPHEN 325 MG TAB PO PRN (19:50)
[2022-03-02] MEDS: HEPARIN 5,000 UNIT/1 ML VIAL SUB-Q SCH ×3 (06:12→21:50)
[2022-03-02] MEDS: hydrALAZINE 100 MG TAB PO SCH ×3 (06:12→18:00)
[2022-03-02] MEDS: METOPROLOL TARTRATE 25 MG TAB PO SCH ×2 (10:10→21:50)
[2022-03-02] MEDS: FUROSEMIDE 20 MG TAB PO SCH (10:10)
[2022-03-02] MEDS: NIFEdipine XL 30 MG TAB PO SCH ×2 (10:10→21:50)
[2022-03-02] MEDS: TAMSULOSIN 0.4 MG CAP PO SCH (10:10)
[2022-03-02] MEDS: ASPIRIN 325 MG TAB PO SCH (10:10)
[2022-03-02] MEDS ORDERED: oxyCODONE /ACETAMINOPHEN 5-325MG TAB PO NR (12:00)
--- NOTE | 2022-03-02 14:21 | Vascular Lab Report ---
DUPLEX DOPPLER ULTRASOUND CAROTID, BILATERAL INDICATION / CLINICAL INFORMATION: stroke. COMPARISON: None available. FINDINGS: RIGHT CAROTID: Minimal atherosclerotic plaque. - PLAQUE ESTIMATE (%): < 50% - CCA velocity: 56 cm/sec. - ICA peak systolic velocity: 57 cm/sec. - ICA/CCA PSV Ratio: Less than 2. Right Vertebral Artery: Antegrade flow. LEFT CAROTID: Minimal atherosclerotic plaque. - PLAQUE ESTIMATE (%): < 50% - CCA velocity: 72 cm/sec. - ICA peak systolic velocity: 109 cm/sec. - ICA/CCA PSV Ratio: Less than 2. Left Vertebral Artery: Antegrade flow. IMPRESSION: 1. Right Internal Carotid Artery: Less than 50% diameter stenosis. 2. Left Internal Carotid Artery: Less than 50% diameter stenosis. Velocity criteria are extrapolated from diameter data as defined by the Society of Radiologists in Ul trasound Consensus Conference, Radiology 2003; 229;340-346. NO STENOSIS (NORMAL) - Plaque = none; ICA PSV < 125 cm/sec; ICA/CCA PSV Ratio < 2.0 <50% STENOSIS - Plaque < 50%; ICA PSV < 125 cm/sec; ICA/CCA PSV Ratio < 2.0 50-69% STENOSIS - Plaque > 50%; ICA PSV = 125-230 cm/sec; ICA/CCA PSV Ratio = 2.0-4.0 >70% BUT <100% STENOSIS - Plaque > 50%; ICA PSV > 230 cm/sec; ICA/CCA PSV Ratio > 4.0 NEAR OCCLUSION - Plaque = visible lumen; ICA PSV = high/low/none; ICA/CCA PSV Ratio = variable TOTAL OCCLUSION - Plaque = no lumen; ICA PSV = none; ICA/CCA PSV Ratio = N/A Scribed by: Nica Lxu RDMS, RVT, RMSKS Scribed: 03/02/2022 10:49 AM I have reviewed the images, agree with this report, and edited this report as needed. Signer Name: Brian Lindquist MD Signed: 03/02/2022 2:17 PM Workstation Name: [email or web address]
--- NOTE | 2022-03-02 14:59 | Magnetic Resonance Report ---
MRI BRAIN 03/02/2022 INDICATION / CLINICAL INFORMATION: CVA rule out, lt sided weakness. TECHNIQUE: Multiplanar, multisequence MR images of the brain were obtained. COMPARISON: None available. FINDINGS: BRAIN / INTRACRANIAL CONTENTS: Unenhanced MR images of the brain were obtained. There is a focal 1 cm area of restricted diffusion present in the right centrum semiovale, consistent with recent or acute ischemic injury. No other areas of restricted diffusion or ischemic change are noted. Ventricles and sulci are normal in size and shape. Extensive chronic white matter T2 weighted hyperin tensities are present throughout the cerebral hemispheric white matter and brainstem, consistent with chronic small vessel ischemic change. There are punctate foci of hemosiderin deposition present in the brainstem and cerebral hemispheres, consistent with remote microhemorrhages. There is no evidence of acute or recent hemorrhage. There are no abnormal extra-axial fluid collections. EXTRACRANIAL: Unremarkable CRANIOCERVICAL JUNCTION: No significant abnormality. VASCULAR FLOW-VOIDS: No significant abnormality. IMPRESSION: Small focus of restricted diffusion in right centrum semiovale. Chronic and age-related changes. Signer Name: Wily Payne MD Signed: 03/02/2022 2:55 PM Workstation Name: [id number]
--- NOTE | 2022-03-02 15:01 | Consultation ---
History of Present Illness Consult date: 03/02/22 Reason for Consult: CVA Chief complaint: Left arm weakness / numbness History of present illness: 61 yo male (right-handed) with htn, heart failure, tobacco abuse, who presents with left chronic hip pain (ongoing pain; scheduled for surgery) but noted this past morning with left arm weakness and difficulty with coordinating himself while ambulating. He notes maybe some slight improvement since his admission but otherwise still notes significant deficits to his left arm. He also notes that his left hip pain prevents too much movement and strength involving the left leg. He also notes that sometime his left knee locks up on him. He is to undergo surgery for his left hip pain in the near future. Past History Past Medical History: heart failure, hypertension Past Surgical History: No surgical history Social history: smoking (Current daily smoker) Family history: no significant family history Medications and Allergies Allergies Allergy/AdvReac Type Severity Reaction Status Date / Time No Known Allergies Allergy Verified 02/25/22 11:37 Home Medications Medication Instructions Recorded Confirmed Last Taken Type Aspirin [Aspirin BABY CHEW TAB] 81 mg PO QDAY 30 Days #30 tab.chew 06/09/21 03/02/22 Unknown Rx Furosemide [Lasix TAB] 20 mg PO QDAY 30 Days #30 tablet 06/09/21 03/02/22 Unknown Rx Losartan [Cozaar] 100 mg PO QDAY 30 Days #30 tablet 06/09/21 03/02/22 Unknown Rx Metoprolol [Lopressor TAB] 50 mg PO BID 30 Days #60 tablet 06/09/21 03/02/22 02/26/22 Rx NIFEdipine XL [Procardia Xl] 60 mg PO Q12HR 30 Days #60 tablet 06/09/21 03/02/22 Unknown Rx Tamsulosin [Flomax] 0.4 mg PO QDAY 30 Days #30 capsule 06/09/21 03/02/22 Unknown Rx hydrALAZINE [Apresoline TAB] 100 mg PO Q8H 30 Days #90 tab 06/09/21 03/02/22 02/26/22 Rx Active Meds: Active Medications Acetaminophen (Acetaminophen 325 Mg Tab) 650 mg PO Q4H PRN PRN Reason: Pain, Mild (1-3) Last Admin: 03/01/22 19:50 Dose: 650 mg Aspirin (Aspirin 325 Mg Tab) 325 mg PO QDAY CATIE Last Admin: 03/02/22 10:10 Dose: 325 mg Atorvastatin Calcium (Atorvastatin 40 Mg Tab) 40 mg PO QHS [facility] Last Admin: 03/01/22 21:27 Dose: 40 mg Bisacodyl (Bisacodyl 10 Mg Rect Supp) 10 mg [place] QDAY PRN PRN Reason: Constipation Furosemide (Furosemide 20 Mg Tab) 20 mg PO QDAY [facility] Last Admin: 03/02/22 10:10 Dose: 20 mg Heparin Sodium (Porcine) (Heparin 5,000 Unit/1 Ml Vial) 5,000 unit SUB-Q Q8HR [facility] Last Admin: 03/02/22 06:12 Dose: 5,000 unit Hydralazine HCl (Hydralazine 20 Mg/1 Ml Inj) 10 mg IV Q4HR PRN PRN Reason: Hypertension Last Admin: 02/27/22 03:13 Dose: 10 mg Hydralazine HCl (Hydralazine 100 Mg Tab) 100 mg PO Q8H [facility] Last Admin: 03/02/22 10:10 Dose: 100 mg Magnesium Hydroxide (Magnesium Hydroxide (Mom) Oral Liqd Udc) 30 ml PO Q4H PRN PRN Reason: Constipation Last Admin: 03/01/22 19:47 Dose: 30 ml Metoclopramide HCl (Metoclopramide 10 Mg Tab) 10 mg PO Q6H PRN PRN Reason: Nausea And Vomiting Metoprolol Tartrate (Metoprolol Tartrate 25 Mg Tab) 50 mg PO BID [facility] Last Admin: 03/02/22 10:10 Dose: 50 mg Morphine Sulfate (Morphine 2 Mg/1 Ml Inj) 2 mg IV Q4H PRN PRN Reason: Pain, Moderate (4-6) Morphine Sulfate (Morphine 4 Mg/1 Ml Inj) 4 mg IV Q4H PRN PRN Reason: Pain , Severe (7-10) Last Admin: 02/27/22 03:13 Dose: 4 mg Nifedipine (Nifedipine Xl 30 Mg Tab) 60 mg PO Q12HR [facility] Last Admin: 03/02/22 10:10 Dose: 60 mg Ondansetron HCl (Ondansetron 4 Mg/2 Ml Inj) 4 mg IV Q8H PRN PRN Reason: Nausea And Vomiting Oxycodone/Acetaminophen (Oxycodone /Acetaminophen 5-325mg Tab) 1 tab PO ONCE NR Stop: 03/02/22 23:59 Last Admin: 03/02/22 11:56 Dose: 1 tab Promethazine HCl (Promethazine 25 Mg Rect Supp) 25 mg [place] Q6H PRN PRN Reason: Nausea And Vomiting Sodium Chloride (Sodium Chloride 0.9% 10 Ml Flush Syringe) 10 ml IV BID [facility] Last Admin: 03/02/22 11:44 Dose: Not Given Sodium Chloride (Sodium Chloride 0.9% 10 Ml Flush Syringe) 10 ml IV PRN PRN PRN Reason: LINE FLUSH Tamsulosin HCl (Tamsulosin 0.4 Mg Cap) 0.4 mg PO QDAY [facility] Last Admin: 03/02/22 10:10 Dose: 0.4 mg Review of Systems All systems: negative (as per hpi;) Physical Examination - Vital Signs Vital Signs: Vital Signs Temp Pulse Resp BP Pulse Ox 98.4 F 85 18 154/84 97 02/26/22 09:47 02/26/22 09:47 02/26/22 09:47 02/26/22 09:47 02/26/22 09:47 - Physical Exam Narrative exam: mild pronator drift at left arm w/ 4+/5 strength at distal left arm; left leg proximal weakness (due to left hip pain); left knee "jams" at times with left leg elevation; Gen: nad, well-nourished; Head: normocephalic; Eyes: no gaze deviation; no ptosis; ENT: normal vocalization; CVS: warm and well-perfused; Pulm: no respiratory distress; GI: appears non-distended; Ext: no cyanosis appreciated at distal extremities; left hip pain w/ movement; Skin: no acute rash at distal extremities; Heme: no pathologic ecchymosis appreciated at distal extremities; Neuro: alert, oriented to name, age, month, year, surroundings, no dysarthria, no aphasia, CN 2 - PERRL, visual marsh grossly intact, CN 3, 4, 6 - EOMI, CN 5 - facial sensation symmetric to light touch, CN 7 - facial movement symmetric, CN 8 - hearing grossly intact, CN 9, 10 - uvula midline, CN 11 symmetric shoulder movement, CN 12 - tongue midline; Motor - mild pronator drift at left arm w/ 4+/5 strength at distal left arm; left proximal leg weakness (3/5 strength) (due to left hip pain w/ movement); noted w/ left knee "jamming up" with left leg elevation; distal left leg 3/5 strength (limited by pain); Sensory - light touch symmetric, Cerebellar - fnf /hts intact on the right but limited on the left due to pain, Gait - deferred secondary to fall risk; NIHSS (1a.) Level of Consciousness:0 (1b.) LOC Questions:0 (1c.) LOC Commands:0 (2.) Best Gaze:0 (3.) Visual:0 (4.) Facial Palsy:0 (5a.) Motor Arm, Left:1 (5b.) Motor Arm, Right:0 (6a.) Motor Leg, Left:2 (6b.) Motor Leg, Right:0 (7.) Limb Ataxia:0 (8.) Sensory:0 (9.) Best Language:0 (10.) Dysarthria:0 (11.) Extinction and Inattention:0 NIHSS Total Score: 3 Results - Laboratory Findings CBC and BMP: 02/28/22 05:46 02/28/22 05:46 Abnormal Lab Findings: Abnormal Labs 02/27/22 02/27/22 02/28/22 00:14 00:14 05:46 MCV 96 H 95 H [place] % (Auto) 10.4 H 9.2 H Seg Neutrophils % 70.8 H Chloride 107.9 H Carbon Dioxide BUN 22 H Creatinine 1.5 H Glucose Calcium 02/28/22 05:46 MCV [place] % (Auto) Seg Neutrophils % Chloride 110.4 H Carbon Dioxide 20 L BUN Creatinine Glucose 105 H Calcium 8.3 L Assessment and Plan 61 yo male (right-handed) with htn, heart failure, tobacco abuse, who presents with left chronic hip pain (ongoing pain; scheduled for surgery) but noted this past morning with left arm weakness and difficulty with coordinating himself while ambulating. He notes maybe some slight improvement since his admission but otherwise still notes significant deficits to his left arm. He also notes that his left hip pain prevents too much movement and strength involving the left leg. He also notes that sometime his left knee locks up on him. He is to undergo surgery f 1. Acute Ischemic Stroke (?icadx; lacunar infarct): ASA 81 mg PO qday, Plavix 75 mg po qday x21 days; ordered CTA Head/Neck w/ & w/o contrast, unremarkable TTEcho/CUS, confirm LDL/TSH/Covid-19/UDS, telemetry, NIHSS q8 hours; aim for normotension. Statin therapy for a goal LDL of 70, when patient passes swallow evaluation. PT/OT/ST/Swallow evaluation. Long-term risk-factor modification, including a strict diet/exercise regimen for secondary stroke prophylaxis. S troke education prior to discharge. Followup with Stroke Neurology in 4 to 6 weeks. 2. Hypertension - aim for normotension. 3. Dyslipidemia - confirm w/ lipid panel; goal LDL of 70 w/ statin therapy if no contraindications. 4. Acute Left Arm Weakness / Paresthesias - pt/ot evaluation/monitoring; if dysestheisa is disabling, recommend gabapentin 100 mg po tid. 5. Tobacco Abuse - outpatient smoking cessation program via pcp. 6. Left Hip Pain - per primary team. Dave Venegas MD Neurology [id number]
--- NOTE | 2022-03-02 19:15 | Progress Note ---
Assessment and Plan Assessment and plan: #CVA vs TIA #Left upper extremity weakness -CT of the head shows remote small pontine and left thalamic stroke -MRI ; small focus of restricted diffusion in the right centrum semiovale Chronic age-related changes -Echocardiogram showed no PFO -PT recommends acute rehab; patient would prefer HH with PT -Neurology consult pending -continue ASA + statin #Chronic heart failure with reduced ejection fraction, not in acute exacerbation -Previous echocardiogram showed EF of 40 to 45%; TTE 02/2022 shows LVEF 55-60% -continue home doses of lasix, metoprolol -losartan was held by PCP, will not restart #Hypertension -continue hydralazine at home dose #Tobacco abuse -Smoking cessation counseling, supportive care, behavior change counseling, +15 minutes. #Chronic hip pain -patient currently being worked up outpatient for possible hip replacement -PRN analgesics ordered #Advanced care planning -Disease education conducted, care plan discussed, diagnoses discussed, prognosis discussed, and patient acknowledges understanding with care plan -Time: +30 min #Discharge planning -Patient would like to go home with home health and physical therapy services, case management consult placed PT and OT recommended acute rehab placement Pending authorization Case management assisting with discharge planning We will closely monitor the patient and adjust management as needed Plan of care reviewed with the patient and his nurse Bottoming Machine Operator recommendations noted and appreciated History Interval history: I have seen and examined the patient this morning during morning rounds Patient's chart, tests and reports and current medication list reviewed No new overnight events reported by the nursing PT and OT recommended acute rehab placement Pending authorization Patient has no new complaints other than left sided weakness Vital signs reviewed Hospitalist Physical - Constitutional Vitals: Temp Pulse Resp BP Pulse Ox 98.7 F 74 20 113/70 99 03/02/22 17:07 03/02/22 17:07 03/02/22 17:07 03/02/22 17:07 03/02/22 17:07 General appearance: Present: no acute distress, well-nourished - EENT Eyes: Present: PERRL, EOM intact ENT: hearing intact, clear oral mucosa - Neck Neck: Present: supple, normal ROM - Respiratory Respiratory effort: normal Respiratory: bilateral: diminished, negative: rales, rhonchi, wheezing - Cardiovascular Rhythm: regular Heart Sounds: Present: S1 & S2 - Extremities Extremities: abnormal (Left hemiparesis) - Abdominal General gastrointestinal: soft, non-tender, non-distended, normal bowel sounds - Integumentary Integumentary: Present: clear, warm - Psychiatric Psychiatric: appropriate mood/affect, cooperative - Neurologic Neurologic: other (Acute CVA with left hemiparesis) Results - Labs CBC & Chem 7: 02/28/22 05:46 02/28/22 05:46 Labs: Laboratory Last Values WBC 5.9 K/mm3 (4.5-11.0) 02/28/22 05:46 RBC 3.75 M/mm3 (3.65-5.03) 02/28/22 05:46 Hgb 11.9 gm/dl (11.8-15.2) 02/28/22 05:46 Hct 35.8 % (35.5-45.6) 02/28/22 05:46 MCV 95 fl (84-94) H 02/28/22 05:46 MCH 32 pg (28-32) 02/28/22 05:46 MCHC 33 % (32-34) 02/28/22 05:46 RDW 13.5 % (13.2-15.2) 02/28/22 05:46 Plt Count 193 K/mm3 (140-440) 02/28/22 05:46 Lymph % (Auto) 24.9 % (13.4-35.0) 02/28/22 05:46 [place] % (Auto) 9.2 % (0.0-7.3) H 02/28/22 05:46 Eos % (Auto) 1.2 % (0.0-4.3) 02/28/22 05:46 Baso % (Auto) 0.4 % (0.0-1.8) 02/28/22 05:46 Lymph # (Auto) 1.5 K/mm3 (1.2-5.4) 02/28/22 05:46 [place] # (Auto) 0.5 K/mm3 (0.0-0.8) 02/28/22 05:46 Eos # (Auto) 0.1 K/mm3 (0.0-0.4) 02/28/22 05:46 Baso # (Auto) 0.0 K/mm3 (0.0-0.1) 02/28/22 05:46 Seg Neutrophils % 64.3 % (40.0-70.0) 02/28/22 05:46 Seg Neutrophils # 3.8 K/mm3 (1.8-7.7) 02/28/22 05:46 Sodium 141 mmol/L (137-145) 02/28/22 05:46 Potassium 3.9 mmol/L (3.6-5.0) 02/28/22 05:46 Chloride 110.4 mmol/L (98-107) H 02/28/22 05:46 Carbon Dioxide 20 mmol/L (22-30) L 02/28/22 05:46 Anion Gap 15 mmol/L 02/28/22 05:46 BUN 19 mg/dL (9-20) 02/28/22 05:46 Creatinine 1.3 mg/dL (0.8-1.3) 02/28/22 05:46 Estimated GFR > 60 ml/min 02/28/22 05:46 BUN/Creatinine Ratio 15 % 02/28/22 05:46 Glucose 105 mg/dL (75-100) H 02/28/22 05:46 Calcium 8.3 mg/dL (8.4-10.2) L 02/28/22 05:46 Total Bilirubin 0.40 mg/dL (0.1-1.2) 02/27/22 00:14 AST 19 units/L (5-40) 02/27/22 00:14 ALT 9 units/L (7-56) 02/27/22 00:14 Alkaline Phosphatase 59 units/L (35-129) 02/27/22 00:14 Total Protein 7.0 g/dL (6.3-8.2) 02/27/22 00:14 Albumin 4.3 g/dL (3.9-5) 02/27/22 00:14 Albumin/Globulin Ratio 1.6 % 02/27/22 00:14 [place]/IV: Voiding Method Urinal Active Medications - Current Medications Current Medications: Generic Name Dose Route Start Last Admin Trade Name Freq PRN Reason Stop Dose Admin Acetaminophen 650 mg 02/27/22 02:32 03/01/22 19:50 Acetaminophen 325 Mg Tab PO 650 mg Q4H PRN Administration Pain, Mild (1-3) Aspirin 325 mg 02/27/22 10:00 03/02/22 10:10 Aspirin 325 Mg Tab PO 325 mg QDAY CATIE Administration Atorvastatin Calcium 40 mg 02/27/22 22:00 03/01/22 21:27 Atorvastatin 40 Mg Tab PO 40 mg QHS CATIE Administration Bisacodyl 10 mg 02/27/22 02:32 Bisacodyl 10 Mg Rect Supp TN QDAY PRN Constipation Furosemide 20 mg 02/28/22 10:00 03/02/22 10:10 Furosemide 20 Mg Tab PO 20 mg QDAY CATIE Administration Heparin Sodium (Porcine) 5,000 unit 02/27/22 06:00 03/02/22 15:21 Heparin 5,000 Unit/1 Ml Vial SUB-Q 5,000 unit Q8HR CATIE Administration Hydralazine HCl 10 mg 02/27/22 03:12 02/27/22 03:13 Hydralazine 20 Mg/1 Ml Inj IV 10 mg Q4HR PRN Administration Hypertension Hydralazine HCl 100 mg 02/27/22 11:00 03/02/22 18:00 Hydralazine 100 Mg Tab PO 100 mg Q8H CATIE Administration Magnesium Hydroxide 30 ml 02/27/22 02:32 03/01/22 19:47 Magnesium Hydroxide (Mom) Oral Liqd Udc PO 30 ml Q4H PRN Administration Constipation Metoclopramide HCl 10 mg 02/27/22 02:32 Metoclopramide 10 Mg Tab PO Q6H PRN Nausea And Vomiting Metoprolol Tartrate 50 mg 02/27/22 22:00 03/02/22 10:10 Metoprolol Tartrate 25 Mg Tab PO 50 mg BID CATIE Administration Morphine Sulfate 2 mg 02/27/22 02:32 Morphine 2 Mg/1 Ml Inj IV Q4H PRN Pain, Moderate (4-6) Morphine Sulfate 4 mg 02/27/22 02:32 02/27/22 03:13 Morphine 4 Mg/1 Ml Inj IV 4 mg Q4H PRN Administration Pain , Severe (7-10) Nifedipine 60 mg 02/27/22 22:00 03/02/22 10:10 Nifedipine Xl 30 Mg Tab PO 60 mg Q12HR CATIE Administration Ondansetron HCl 4 mg 02/27/22 02:32 Ondansetron 4 Mg/2 Ml Inj IV Q8H PRN Nausea And Vomiting Oxycodone/Acetaminophen 1 tab 03/02/22 12:00 03/02/22 11:56 Oxycodone /Acetaminophen 5-325mg Tab PO 03/02/22 23:59 1 tab ONCE NR Administration Promethazine HCl 25 mg 02/27/22 02:32 Promethazine 25 Mg Rect Supp TN Q6H PRN Nausea And Vomiting Sodium Chloride 10 ml 02/27/22 10:00 03/02/22 11:44 Sodium Chloride 0.9% 10 Ml Flush Syringe IV Not Given BID CATIE Sodium Chloride 10 ml 02/27/22 02:32 Sodium Chloride 0.9% 10 Ml Flush Syringe IV PRN PRN LINE FLUSH Tamsulosin HCl 0.4 mg 02/28/22 10:00 03/02/22 10:10 Tamsulosin 0.4 Mg Cap PO 0.4 mg QDAY CATIE Administration Nutrition/Malnutrition Assess - Dietary Evaluation Nutrition/Malnutrition Findings: Nutrition Notes Start: 02/27/22 08:19 Freq: Status: Active Protocol: Document 02/27/22 08:19 DEANNE (Rec: 02/27/22 08:28 DEANNE [id number]) Nutrition Notes Need for Assessment generated from: MD Order,Education Initial or Follow up Brief Note Current Diagnosis Hypertension Other Pertinent Diagnosis R/O CVA, CHF, L-UE Weakness. Current Diet Cardiac Diet (since B 02/27). Height 6 ft 1 in Weight 88.451 kg [place] Body Weight (kg) 83.63 BMI 25.7 Intake Prior to Admission Good Weight change and time frame Pt denies having loss body weight [employer]. Weight Status Overweight Subjective/Other Information RD consult for nutrition education assessment. No reports available on Pt's PO intake of meals at the time , will assess at F/U. Pt is on Room Air, O2 saturation @ 95%, according to Physical Assessment History notes. Bedside swallow assessment passed on 02/27, according to Swallow Screen notes. Pt still in critical condition , not a candidate for Nutrition Education at the time, will assess feasibility on F/U. Percent of energy/protein needs met: Prescribed Cardiac Diet provides for energy/protein needs (2,230 Kcal/85 g) during LOS. Nutrition Intervention Follow-Up By: 03/05/22 Additional Comments Nutrition education will be provided at F/U, if feasible. Continue monitoring food tolerance, %PO intake of meals , and BM.
[2022-03-02] MEDS: ACETAMINOPHEN 325 MG TAB PO PRN (22:33)
[2022-03-03] MEDS: hydrALAZINE 100 MG TAB PO SCH ×3 (03:57→19:59)
[2022-03-03] MEDS: HEPARIN 5,000 UNIT/1 ML VIAL SUB-Q SCH ×3 (05:00→22:50)
[2022-03-03 05:09] LABS: Chol/HDL Ratio 1.63 %
--- NOTE | 2022-03-03 08:34 | Cat Scan Report ---
CT angio head INDICATION / CLINICAL INFORMATION: 61 years Male; cva. TECHNIQUE: Thin cut axial images obtained through the head during IV bolus contrast administration. S agittal, coronal, and 3 plane MIP reconstructions performed by the technologist. NASCET type criteria used evaluate stenoses. Automated exposure control utilized for radiation reduction purposes. . COMPARISON: None available. FINDINGS: INTERNAL CAROTID ARTERIES: No significant narrowing appreciated. VERTEBROBASILAR SYSTEM: No significant narrowing appreciated. Proximal basilar artery is fenestrated- no aneurysm seen. DISTAL BRANCHES: Distal branches of the anterior, middle, and posterior cerebral arteries are fairly symmetric in appearance and number. ANEURYSM: None identified. ADDITIONAL FINDINGS: Small lacunar infarcts seen in the lateral left thalamic region. White matter di sease noted in the cerebral hemispheres. Pontine disease seen as well. Similar findings seen on recen t MRI. IMPRESSION: 1. No significant narrowing or signs of large vessel occlusion on this CTA of the head. Signer Name: Schuyler Newberry MD, III Signed: 03/03/2022 8:30 AM Workstation Name: [email or web address]
--- NOTE | 2022-03-03 08:39 | Cat Scan Report ---
CT angio neck INDICATION / CLINICAL INFORMATION: 61 years Male; cva. TECHNIQUE: Thin cut axial images obtained through the head during IV bolus contrast administration. S agittal, coronal, and 3 plane MIP reconstructions performed by the technologist. NASCET type criteria used evaluate stenoses. All CT scans at this location are performed using CT dose reduction for ALAR A by means of automated exposure control. . COMPARISON: None available. FINDINGS: ARCH: Normal aortic arch branching suggested. CAROTID ARTERIES: The visualized common and internal carotid arteries are widely patent. VERTEBRAL ARTERIES: Left dominant vertebral system seen. No significant stenosis appreciated. ADDITIONAL FINDINGS: Mild thickening in the ethmoids. Mild to moderate mucosal thickening seen in the mastoids. No coalescence of air cells seen. Patient appears to been swallowing at the time of exam, which most likely contributes to the suggesti on of prominence of soft tissue posteriorly in the larynx. IMPRESSION: No significant stenosis appreciated on this CTA of the neck. Signer Name: Schuyler Newberry MD, III Signed: 03/03/2022 8:35 AM Workstation Name: [email or web address]
--- NOTE | 2022-03-03 09:17 | Progress Note ---
Assessment and Plan Assessment and plan: #Acute CVA with left-hemiparesis #Left upper extremity weakness -CT of the head shows remote small pontine and left thalamic stroke -MRI ; small focus of restricted diffusion in the right centrum semiovale Chronic age-related changes -Echocardiogram showed no PFO -PT recommends acute rehab; patient would prefer HH with PT Neuro evaluation and recommendations noted and appreciated consult pending -continue ASA + statin #Chronic heart failure with reduced ejection fraction, not in acute exacerbation -Previous echocardiogram showed EF of 40 to 45%; TTE 02/2022 shows LVEF 55-60% -continue home doses of lasix, metoprolol -losartan was held by PCP, will not restart #Hypertension -continue hydralazine at home dose #Tobacco abuse -Smoking cessation counseling, supportive care, behavior change counseling, +15 minutes. #Chronic hip pain -patient currently being worked up outpatient for possible hip replacement -PRN analgesics ordered #Advanced care planning -Disease education conducted, care plan discussed, diagnoses discussed, prognosis discussed, and patient acknowledges understanding with care plan -Time: +30 min #Discharge planning -Patient would like to go home with home health and physical therapy services, case management consult placed PT and OT recommended acute rehab placement Pending authorization Case management assisting with discharge planning We will closely monitor the patient and adjust management as needed Plan of care reviewed with the patient and his nurse Foam Caster recommendations noted and appreciated 03/03/2022; PT recommended acute rehab Placement pending authorization History Interval history: I have seen and examined the patient this morning Patient's chart and medications reviewed Patient was admitted with acute CVA with left-sided weakness No new overnight events reported per nursing Patient feels better is tolerating physical therapy PT recommended acute rehab/pending authorization Vital signs noted Hospitalist Physical - Constitutional Vitals: Temp Pulse Resp BP Pulse Ox 98.0 F 77 16 118/81 96 03/03/22 07:14 03/03/22 07:14 03/03/22 07:14 03/03/22 07:14 03/03/22 07:14 General appearance: Present: no acute distress, well-nourished - EENT Eyes: Present: PERRL, EOM intact - Neck Neck: Present: supple, normal ROM - Respiratory Respiratory effort: normal Respiratory: bilateral: diminished, negative: rales, rhonchi, wheezing - Cardiovascular Rhythm: regular Heart Sounds: Present: S1 & S2 - Extremities Extremities: no ischemia, No edema - Abdominal General gastrointestinal: soft, non-tender, non-distended, normal bowel sounds - Integumentary Integumentary: Present: clear, warm - Psychiatric Psychiatric: appropriate mood/affect, cooperative - Neurologic Neurologic: moves all extremities, other (Acute CVA with left hemiparesis) Results - Labs CBC & Chem 7: 02/28/22 05:46 02/28/22 05:46 Labs: Laboratory Last Values WBC 5.9 K/mm3 (4.5-11.0) 02/28/22 05:46 RBC 3.75 M/mm3 (3.65-5.03) 02/28/22 05:46 Hgb 11.9 gm/dl (11.8-15.2) 02/28/22 05:46 Hct 35.8 % (35.5-45.6) 02/28/22 05:46 MCV 95 fl (84-94) H 02/28/22 05:46 MCH 32 pg (28-32) 02/28/22 05:46 MCHC 33 % (32-34) 02/28/22 05:46 RDW 13.5 % (13.2-15.2) 02/28/22 05:46 Plt Count 193 K/mm3 (140-440) 02/28/22 05:46 Lymph % (Auto) 24.9 % (13.4-35.0) 02/28/22 05:46 [place] % (Auto) 9.2 % (0.0-7.3) H 02/28/22 05:46 Eos % (Auto) 1.2 % (0.0-4.3) 02/28/22 05:46 Baso % (Auto) 0.4 % (0.0-1.8) 02/28/22 05:46 Lymph # (Auto) 1.5 K/mm3 (1.2-5.4) 02/28/22 05:46 [place] # (Auto) 0.5 K/mm3 (0.0-0.8) 02/28/22 05:46 Eos # (Auto) 0.1 K/mm3 (0.0-0.4) 02/28/22 05:46 Baso # (Auto) 0.0 K/mm3 (0.0-0.1) 02/28/22 05:46 Seg Neutrophils % 64.3 % (40.0-70.0) 02/28/22 05:46 Seg Neutrophils # 3.8 K/mm3 (1.8-7.7) 02/28/22 05:46 Sodium 141 mmol/L (137-145) 02/28/22 05:46 Potassium 3.9 mmol/L (3.6-5.0) 02/28/22 05:46 Chloride 110.4 mmol/L (98-107) H 02/28/22 05:46 Carbon Dioxide 20 mmol/L (22-30) L 02/28/22 05:46 Anion Gap 15 mmol/L 02/28/22 05:46 BUN 19 mg/dL (9-20) 02/28/22 05:46 Creatinine 1.3 mg/dL (0.8-1.3) 02/28/22 05:46 Estimated GFR > 60 ml/min 02/28/22 05:46 BUN/Creatinine Ratio 15 % 02/28/22 05:46 Glucose 105 mg/dL (75-100) H 02/28/22 05:46 Calcium 8.3 mg/dL (8.4-10.2) L 02/28/22 05:46 Total Bilirubin 0.40 mg/dL (0.1-1.2) 02/27/22 00:14 AST 19 units/L (5-40) 02/27/22 00:14 ALT 9 units/L (7-56) 02/27/22 00:14 Alkaline Phosphatase 59 units/L (35-129) 02/27/22 00:14 Total Protein 7.0 g/dL (6.3-8.2) 02/27/22 00:14 Albumin 4.3 g/dL (3.9-5) 02/27/22 00:14 Albumin/Globulin Ratio 1.6 % 02/27/22 00:14 Triglycerides 74 mg/dL (2-149) 03/03/22 04:19 Cholesterol 103 mg/dL (50-199) 03/03/22 04:19 LDL Cholesterol Direct 31 mg/dL (50-130) L 03/03/22 04:19 HDL Cholesterol 63 mg/dL (40-59) H 03/03/22 04:19 Cholesterol/HDL Ratio 1.63 % 03/03/22 04:19 [place]/IV: Voiding Method Urinal Active Medications - Current Medications Current Medications: Generic Name Dose Route Start Last Admin Trade Name Freq PRN Reason Stop Dose Admin Acetaminophen 650 mg 02/27/22 02:32 03/02/22 22:33 Acetaminophen 325 Mg Tab PO 650 mg Q4H PRN Administration Pain, Mild (1-3) Aspirin 325 mg 02/27/22 10:00 03/02/22 10:10 Aspirin 325 Mg Tab PO 325 mg QDAY CATIE Administration Atorvastatin Calcium 40 mg 02/27/22 22:00 03/02/22 21:51 Atorvastatin 40 Mg Tab PO 40 mg QHS CATIE Administration Bisacodyl 10 mg 02/27/22 02:32 Bisacodyl 10 Mg Rect Supp AR QDAY PRN Constipation Furosemide 20 mg 02/28/22 10:00 03/02/22 10:10 Furosemide 20 Mg Tab PO 20 mg QDAY CATIE Administration Heparin Sodium (Porcine) 5,000 unit 02/27/22 06:00 03/03/22 05:00 Heparin 5,000 Unit/1 Ml Vial SUB-Q 5,000 unit Q8HR CATIE Administration Hydralazine HCl 10 mg 02/27/22 03:12 02/27/22 03:13 Hydralazine 20 Mg/1 Ml Inj IV 10 mg Q4HR PRN Administration Hypertension Hydralazine HCl 100 mg 02/27/22 11:00 03/03/22 03:57 Hydralazine 100 Mg Tab PO 100 mg Q8H CATIE Administration Magnesium Hydroxide 30 ml 02/27/22 02:32 03/01/22 19:47 Magnesium Hydroxide (Mom) Oral Liqd Udc PO 30 ml Q4H PRN Administration Constipation Metoclopramide HCl 10 mg 02/27/22 02:32 Metoclopramide 10 Mg Tab PO Q6H PRN Nausea And Vomiting Metoprolol Tartrate 50 mg 02/27/22 22:00 03/02/22 21:50 Metoprolol Tartrate 25 Mg Tab PO 50 mg BID CATIE Administration Morphine Sulfate 2 mg 02/27/22 02:32 Morphine 2 Mg/1 Ml Inj IV Q4H PRN Pain, Moderate (4-6) Morphine Sulfate 4 mg 02/27/22 02:32 02/27/22 03:13 Morphine 4 Mg/1 Ml Inj IV 4 mg Q4H PRN Administration Pain , Severe (7-10) Nifedipine 60 mg 02/27/22 22:00 03/02/22 21:50 Nifedipine Xl 30 Mg Tab PO 60 mg Q12HR CATIE Administration Ondansetron HCl 4 mg 02/27/22 02:32 Ondansetron 4 Mg/2 Ml Inj IV Q8H PRN Nausea And Vomiting Promethazine HCl 25 mg 02/27/22 02:32 Promethazine 25 Mg Rect Supp AR Q6H PRN Nausea And Vomiting Sodium Chloride 10 ml 02/27/22 10:00 03/02/22 22:30 Sodium Chloride 0.9% 10 Ml Flush Syringe IV Not Given BID CATIE Sodium Chloride 10 ml 02/27/22 02:32 Sodium Chloride 0.9% 10 Ml Flush Syringe IV PRN PRN LINE FLUSH Tamsulosin HCl 0.4 mg 02/28/22 10:00 03/02/22 10:10 Tamsulosin 0.4 Mg Cap PO 0.4 mg QDAY CATIE Administration Nutrition/Malnutrition Assess - Dietary Evaluation Nutrition/Malnutrition Findings: Nutrition Notes Start: 02/27/22 08:19 Freq: Status: Active Protocol: Document 02/27/22 08:19 DEANNE (Rec: 02/27/22 08:28 DEANNE [id number]) Nutrition Notes Need for Assessment generated from: MD Order,Education Initial or Follow up Brief Note Current Diagnosis Hypertension Other Pertinent Diagnosis R/O CVA, CHF, L-UE Weakness. Current Diet Cardiac Diet (since B 02/27). 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 Weight Status Overweight Subjective/Other Information RD consult for nutrition education assessment. No reports available on Pt's PO intake of meals at the time , will assess at F/U. Pt is on Room Air, O2 saturation @ 95%, according to Physical Assessment History notes. Bedside swallow assessment passed on 02/27, according to Swallow Screen notes. Pt still in critical condition , not a candidate for Nutrition Education at the time, will assess feasibility on F/U. Percent of energy/protein needs met: Prescribed Cardiac Diet provides for energy/protein needs (2,230 Kcal/85 g) during LOS. Nutrition Intervention Follow-Up By: 03/05/22 Additional Comments Nutrition education will be provided at F/U, if feasible. Continue monitoring food tolerance, %PO intake of meals , and BM.
[2022-03-03] MEDS: FUROSEMIDE 20 MG TAB PO SCH (10:07)
[2022-03-03] MEDS: TAMSULOSIN 0.4 MG CAP PO SCH (10:07)
[2022-03-03] MEDS: NIFEdipine XL 30 MG TAB PO SCH ×2 (10:07→22:50)
[2022-03-03] MEDS: METOPROLOL TARTRATE 25 MG TAB PO SCH ×2 (10:07→22:50)
[2022-03-03] MEDS: ASPIRIN 325 MG TAB PO SCH (10:07)
[2022-03-03] MEDS: MAGNESIUM HYDROXIDE (MOM) ORAL LIQD UDC PO PRN (12:47)
[2022-03-04] MEDS: hydrALAZINE 100 MG TAB PO SCH (03:42)
[2022-03-04] MEDS: HEPARIN 5,000 UNIT/1 ML VIAL SUB-Q SCH (06:24)
[2022-03-04 08:17] VITALS: BP 115/74
[2022-03-04] MEDS: METOPROLOL TARTRATE 25 MG TAB PO SCH (09:05)
[2022-03-04] MEDS: ASPIRIN 325 MG TAB PO SCH (09:05)
[2022-03-04] MEDS: TAMSULOSIN 0.4 MG CAP PO SCH (09:05)
[2022-03-04] MEDS: NIFEdipine XL 30 MG TAB PO SCH (09:06)
[2022-03-04] MEDS: FUROSEMIDE 20 MG TAB PO SCH (09:06)
[2022-03-04] MEDS ORDERED: ASPIRIN 325 MG TAB PO SCH (13:13)
--- NOTE | 2022-03-04 13:18 | Discharge Summary ---
Providers - Providers Date of Admission: 02/27/22 02:32 Date of discharge: 03/04/22 Attending physician: JOHN SCALES 02/27/22 Consult to Physician [CONS] Routine Comment: Consulting Provider: ANA CRISTINA MADRIGAL Physician Instructions: Reason For Exam: left arm weakness. ? CVA 02/27/22 02:32 Consult to Dietitian/Nutrition [CONS] Routine Physician Instructions: Reason For Exam: Reason for Consult: Nutrition Recommendations Reason for Consult: Diet education Occupational Therapy Evaluate and Treat [CONS] Routine Comment: Reason For Exam: Neuro deficits Physical Therapy Evaluation and Treat [CONS] Routine Comment: Reason For Exam: Neuro deficits Primary care physician: JJ MEDINA Hospitalization Reason for admission: Left arm numbness and weakness Condition: Stable Pertinent studies: CT of the head shows remote small pontine and left thalamic stroke -MRI ; small focus of restricted diffusion in the right centrum semiovale Chronic age-related changes -Echocardiogram showed no PFO -PT recommends acute rehab; patient would prefer HH with PT Hospital course: 61-year-old male patient with significant history of hypertension, congestive heart failure, ongoing tobacco use was admitted through emergency room with left arm numbness and weakness patient was not a candidate for tPA CT head shows moderate microvascular ischemic changes in the white matter both cerebral hemispheres evidence of remote small pontine infarction and remote left thalamic small deep infarction no acute intracranial abnormality noted patient was admitted to the hospital evaluated by neurologist patient underwent extensive neuro work-up as mentioned above MRI showed small focus of restricted Diffusion in right centrum synovial neurology has evaluated the patient and recommended aspirin 81 mg p.o. daily and Plavix 75 mg p.o. x21 days patient also has left arm weakness and paresthesias for which neurology recommended gabapentin 100 mg 3 times a day patient has tobacco abuse counseling done strongly advised to quit tobacco and nicotine patch as needed PT PT evaluated the patient, recommended acute rehab and Rollator and rolling walker OT recommended acute rehab, Case management assisting with placement. I discussed with insurance physician ,did not approve acute rehab placement , and informed me that based on PT OT evaluation patient has no indication for acute rehab And advised home with home health. Case management is assisting with discharge planning Patient is being discharged home with home health services Stable at discharge Discharge diagnosis #Acute CVA with left-hemiparesis #Left upper extremity weakness -CT of the head shows remote small pontine and left thalamic stroke -MRI ; small focus of restricted diffusion in the right centrum semiovale Chronic age-related changes -Echocardiogram showed no PFO -PT recommends acute rehab; patient would prefer HH with PT Neuro evaluation and recommendations noted and appreciated consult pending -continue ASA + statin #Chronic heart failure with reduced ejection fraction, not in acute exacerbation -Previous echocardiogram showed EF of 40 to 45%; TTE 02/2022 shows LVEF 55-60% -continue home doses of lasix, metoprolol -losartan was held by PCP, will not restart #Hypertension -continue hydralazine at home dose #Tobacco abuse -Smoking cessation counseling, supportive care, behavior change counseling, +15 minutes. #Chronic hip pain -patient currently being worked up outpatient for possible hip replacement -PRN analgesics ordered #Advanced care planning -Disease education conducted, care plan discussed, diagnoses discussed, prognosis discussed, and patient acknowledges understanding with care plan -Time: +30 min Stable at discharge home with home health Disposition: HOME HEALTH CARE SERVICE Final Discharge Diagnosis (Prints w/discharge instructions): Acute CVA with left hemiparesis. Left upper extremity weakness. Chronic congestive heart failure systolic. Hypertension. Ongoing tobacco use. Chronic hip pain/osteoarthritis Time spent for discharge: 35 minutes Core Measure Documentation - Palliative Care Palliative Care/ Comfort Measures: Not Applicable - Core Measures Any of the following diagnoses?: stroke - Stroke Discharge Requirements Statin for LDL = or >70 mg/dl on DC: No Reason for no statin on DC: Not Indicated Anticoag for atrial fib/atrial flutter: No Reason for no anticoag for AF/F on DC: Not Indicated (No A. fib or flutter) Antithrombotic for ischemic stroke: Yes Exam - Constitutional Vitals: Temp Pulse Resp BP Pulse Ox 98.5 F 78 19 115/74 98 03/04/22 07:30 03/04/22 07:30 03/04/22 07:30 03/04/22 07:30 03/04/22 07:30 General appearance: Present: no acute distress, well-nourished - EENT Eyes: Present: PERRL, EOM intact - Neck Neck: Present: supple, normal ROM - Respiratory Respiratory effort: normal Respiratory: bilateral: diminished, negative: rales, rhonchi, wheezing - Cardiovascular Rhythm: regular Heart Sounds: Present: S1 & S2 - Extremities Extremities: no ischemia, abnormal (Left-sided weakness) - Abdominal General gastrointestinal: Present: soft, non-tender, non-distended, normal bowel sounds - Integumentary Integumentary: Present: clear, warm - Musculoskeletal Musculoskeletal: left sided weakness - Psychiatric Psychiatric: appropriate mood/affect, cooperative - Neurologic Neurologic: other (Acute CVA with left hemiparesis) Plan Activity: advance as tolerated, fall precautions Diet: other (Cardiac diet as tolerated) Special Instructions: physical therapy (Home health PT) Durable Medical Equipment Needed Upon Discharge: Cane, Walker-Rolling Additional Instructions: If you have worsening symptoms contact MD or go to the nearest emergency room as needed. Fall precautions. Advised to see primary care physician in 1 week. Advised to see private neurologist in 1 to 2 weeks. Advised to take Plavix 75 mg for 3 weeks and stop and check with neurologist Follow up with: JJ MEDINA MD [Primary Care Provider] - 3-5 Days SARTHAK KARIMI MD [Staff Physician] - 7 Days Prescriptions: hydrALAZINE [Apresoline TAB] 100 mg PO Q8H 30 Days #90 tab Aspirin [Aspirin BABY CHEW TAB] 81 mg PO QDAY 30 Days #30 tab.chew Losartan [Cozaar] 50 mg PO BID #60 bisacodyL [Dulcolax suppos] 10 mg UT QDAY PRN #10 supp.rect PRN Reason: Constipation Tamsulosin [Flomax] 0.4 mg PO QDAY #30 capsule Furosemide [Lasix TAB] 20 mg PO QDAY 30 Days #30 tablet Metoprolol [Lopressor TAB] 25 mg PO BID #60 Clopidogrel [Plavix] 75 mg PO QDAY #30 tablet NIFEdipine XL [Procardia Xl] 30 mg PO QDAY #30
[2022-03-04] MEDS ORDERED: CLOPIDOGREL 75 MG TAB PO SCH (14:00)
[2022-03-05] MEDS ORDERED: ASPIRIN 81 MG TAB CHEW PO SCH (10:00)
== END 2022-03-04 17:37 | disposition home health service (06) | DRG 65 ==
LOC: ED 09:24 → 4A 02-27 02:32
PROVIDERS: ADMIT Internal Medicine Geriatric Medicine; ATTEND Internal Medicine
DX: I63.9 Cerebral infarction, unspecified (principal); G81.94 Hemiplegia, unspecified affecting left nondominant side; I50.22 Chronic systolic (congestive) heart failure; I11.0 Hypertensive heart disease with heart failure; F17.200 Nicotine dependence, unspecified, uncomplicated; Z79.82 Long term (current) use of aspirin; Z79.899 Other long term (current) drug therapy; Z71.6 Tobacco abuse counseling; M16.12 Unilateral primary osteoarthritis, left hip
CPT/HCPCS: 36415; 70450; 70496; 70498; 70551; 71046; 80048; 80053; 80061; 84484; 85025; 85610; 93005; 93306; 93880; 99406; G0378; C8929; J0360; J1644; J2270; Q9967